=== PATIENT | female | born 1985 | race Caucasian/White ===

== ENCOUNTER 2019-12-07 18:42 | Emergency (ER) | payer MEDICAID ==
[2019-12-07 18:49] VITALS: BP 132/71
--- NOTE | 2019-12-07 19:06 | ED Physician Documentation ---
PD HPI LOWER EXT INJURY - Stated complaint Stated Complaint: RT KNEE INJ - Chief complaint Chief Complaint: Trauma Ext - History obtained from History obtained from: Patient - History of Present Illness PD HPI LOW EXT INJURY LOCATION: Right, Knee Type of injury: Twist Where injury occurred: Home Timing - onset: How many hours ago (2) Timing - duration: Hours (2) Timing - details: Abrupt onset Pain level max: 7 Pain level now: 4 Improved by: Rest, Ice, Immobilization Worsened by: Moving, Palpating Associated symptoms: No: Weakness, Numbness, Tingling, Swelling Contributing factors: No: Anticoagulated Recently seen: Not recently seen - Additional information Additional information: Patient states that she was getting out of her car and twisted on her right knee. [place] a pop. Increased pain since that time. Review of Systems Constitutional: denies: Fever, Chills Throat: denies: Sore throat GI: denies: Vomiting, Diarrhea : denies: Now EGA Neurologic: denies: Headache, Head injury PD PAST MEDICAL HISTORY - Past Medical History Past Medical History: No - Past Surgical History Past Surgical History: Yes - Present Medications Home Medications: Ambulatory Orders Medication Instructions Recorded Confirmed Ibuprofen [Motrin] 800 mg PO Q8H PRN #30 tablet 12/07/19 - Allergies Allergies/Adverse Reactions: Allergies Allergy/AdvReac Type Severity Reaction Status Date / Time control Allergy Unknown Uncoded 12/07/19 19:00 - Social History Does the pt smoke?: No Smoking Status: Never smoker Does the pt drink ETOH?: No Does the pt have substance abuse?: No - Immunizations Immunizations are current?: Yes PD ED PE NORMAL - Vitals Vital signs reviewed: Yes - General General: Alert and oriented X 3, No acute distress - HEENT HEENT: Moist mucous membranes - Derm Derm: Warm and dry - Extremities Extremities: Other (Right knee - No significant anterior tenderness. There is some pain in the posterior aspect of the knee. ACL, MCL, PCL, LCL are intact. No significant joint effusion. Quadriceps and patellar tendon are intact. Limited range of motion secondary to pain with flexion of the knee. Unable to tolera) - Neuro Neuro: Alert and oriented X 3 Results - Vitals Vitals: Vital Signs - 24 hr 12/07/19 12/07/19 12/07/19 18:46 19:15 19:27 Temperature 36.6 C Heart Rate 72 Respiratory 16 16 16 Rate Blood Pressure 132/71 H O2 Saturation 100 12/07/19 20:00 Temperature Heart Rate Respiratory 17 Rate Blood Pressure O2 Saturation Oxygen O2 Source Room air - Rads (name of study) R knee xray Radiology: Prelim report reviewed, EMP read contemporaneously, See rad report (normal) PD MEDICAL DECISION MAKING - ED course Complexity details: reviewed results, re-evaluated patient, considered differential, d/w patient ED course: 34-year-old female with right knee pain. Likely meniscus injury. Placed in a articulating knee brace and ambulating well. We will have her follow-up with orthopedics for repeat evaluation when the swelling has decreased. Patient counseled regarding signs and symptoms for which I believe and urgent re- evaluation would be necessary. Patient with good understanding of and agreement to plan and is comfortable going home at this time This document was made in part using voice recognition software. While efforts are made to proofread this document, sound alike and grammatical errors may occur. Departure - Departure Disposition: 01 Home, Self Care Clinical Impression: Right knee sprain Qualifiers: Encounter type: initial encounter Involved ligament of knee: unspecified ligament Qualified Code(s): S83.91XA - Sprain of unspecified site of right knee, initial encounter Condition: Good Instructions: ED Meniscal Injury Knee Poss, ED Sprain Knee Follow-Up: [facility] [Provider Group] Prescriptions: Ibuprofen [Motrin] 800 mg PO Q8H PRN #30 tablet PRN Reason: PAIN &/OR FEVER Comments: There are no acute findings on your x-ray today. You may have a meniscus tear in that knee, you should follow-up with your doctor and orthopedics for further evaluation and care. You should have a repeat exam in 1 week once the swelling has decreased. The brace will help support your knee until the swelling decreases. You may bear weight as tolerated. Forms: Activity restrictions Discharge Date/Time: 12/07/19 20:00
--- NOTE | 2019-12-07 19:21 | XRAY Report ---
PROCEDURE: Knee 4 View RT INDICATIONS: Right knee pain status post twisting injury TECHNIQUE: 4 views of the right knee(s) were acquired. COMPARISON: None. FINDINGS: Bones: No fractures or dislocations. No suspicious bony lesions. Soft tissues: No joint effusion. No suspicious soft tissue calcifications. IMPRESSION: No acute finding. Reviewed by: Flo Scruggs MD on 12/07/2019 7:19 PM PDT Approved by: Flo Scruggs MD on 12/07/2019 7:19 PM PDT Station ID: [id number]
== END 2019-12-07 20:00 | disposition home or self-care (01) ==
LOC: ED 18:42
DX: S83.91XA Sprain of unspecified site of right knee, initial encounter (principal); X50.1XXA Overexertion from prolonged static or awkward postures, initial encounter; Y93.89 Activity, other specified; Y92.009 Unspecified place in unspecified non-institutional (private) residence as the place of occurrence of the external cause
CPT/HCPCS: 99283; 99284